=== PATIENT | female | born 1950 | race Hispanic/Latino ===

== ENCOUNTER 2018-05-01 13:48 | Emergency (ER) | payer MEDICARE | END 2018-05-01 14:23 | disposition home or self-care (01) | LOC: EDH 13:48 | DX: M79.604 Pain in right leg (principal); E78.5 Hyperlipidemia, unspecified; I10 Essential (primary) hypertension; Z72.0 Tobacco use; Z98.890 Other specified postprocedural states ==

== ENCOUNTER → 2018-08-02 | Outpatient (CLI) | payer MEDICARE | END | disposition home or self-care (01) | LOC: RAH 11:08 | PROVIDERS: ATTEND Orthopaedic Surgery | DX: G57.01 Lesion of sciatic nerve, right lower limb (principal); M54.5 Low back pain; Z91.81 History of falling; I10 Essential (primary) hypertension; E78.5 Hyperlipidemia, unspecified | CPT/HCPCS: 72148 ==

== ENCOUNTER → 2020-07-19 | Outpatient (CLI) | payer MEDICARE | END | disposition home or self-care (01) | LOC: OIH 11:24 | PROVIDERS: ATTEND Family Medicine | DX: M16.0 Bilateral primary osteoarthritis of hip (principal); M47.816 Spondylosis without myelopathy or radiculopathy, lumbar region; R26.9 Unspecified abnormalities of gait and mobility | CPT/HCPCS: 73521 ==

== ENCOUNTER → 2023-04-16 | Outpatient (CLI) | payer OTHER, MEDICARE ==
[2023-04-16 16:44] LABS: ALBUMIN 3.5 g/dL (3.5-5.0); POTASSIUM 3.8 mmol/L (3.5-5.1); TOTAL PROTEIN, SERUM 7.3 g/dL (6.0-8.3)
== END | disposition home or self-care (01) ==
LOC: LAB 15:23
PROVIDERS: ATTEND Student in an Organized Health Care Education/Training Program
DX: I49.3 Ventricular premature depolarization (principal)
CPT/HCPCS: 36415; 80053

== ENCOUNTER → 2023-04-20 | Outpatient (CLI) | payer OTHER, MEDICARE ==
[~2023-04-20] MED LIST: IOHEXOL 350 MG/ML 100ML INFUS..BTL IV ONE
== END | disposition home or self-care (01) ==
LOC: RAH 08:01
PROVIDERS: ATTEND Student in an Organized Health Care Education/Training Program
DX: R07.9 Chest pain, unspecified (principal)
CPT/HCPCS: 75574; Q9967

== ENCOUNTER → 2024-04-06 | Outpatient (CLI) | payer OTHER, MEDICARE ==
[~2024-04-06] MED LIST changes: +ATOR40TA69 PO; +ERGO500093 PO; +IBUP-2070 PO; -IOHEXOL 350 MG/ML 100ML INFUS..BTL IV ONE; +LIFI1DRO; +OLME40TA18 PO; +TRAM50TA4 PO
[2024-04-06 09:36] LABS: BASOPHILS # (AUTO) 0.08 K/uL (0.00-0.20); BASOPHILS % (AUTO) 1.4 % (0.0-5.0); EOSINOPHILS # (AUTO) 0.44 K/uL (0.00-0.70); EOSINOPHILS % (AUTO) 7.7 % (0.0-8.0); HEMATOCRIT 44.2 % (36-48); IMMATURE GRANULOCYTE ABSOLUTE 0.01 K/uL (0-1); LYMPHOCYTES # (AUTO) 1.5 K/uL (1.0-4.8); LYMPHOCYTES % (AUTO) 26.7 % (21.0-51.0); MEAN CORPUSCULAR HEMOGLOBIN 29.8 pg (27.0-33.0); MEAN CORPUSCULAR HGB CONC 33.3 g/dL (32.0-36.0); MEAN CORPUSCULAR VOLUME 89.5 fL (79-99); MONOCYTES # (AUTO) 0.6 K/uL (0.1-1.0); MONOCYTES % (AUTO) 9.9 % (3.0-13.0); NEUTROPHILS # (AUTO) 3.1 K/uL (1.8-7.7); NEUTROPHILS % (AUTO) 54.1 % (40.0-77.0); PLATELET COUNT (AUTO) 182 K/uL (130-400); RED BLOOD CELL COUNT(AUTO) 4.94 MIL/uL (4.00-5.50); WHITE BLOOD COUNT (AUTO) 5.7 K/uL (4.8-10.8)
[2024-04-06 09:48] LABS: INR <= 0.93 (0.85-1.15); PROTHROMBIN TIME 10.2 SEC (9.6-11.6)
[2024-04-06 09:49] LABS: PARTIAL THROMBOPLASTIN TIME 25.1 SEC (26.3-35.5)
== END | disposition home or self-care (01) ==
LOC: LAB 09:14
PROVIDERS: ATTEND Internal Medicine Gastroenterology
DX: R93.3 Abnormal findings on diagnostic imaging of other parts of digestive tract (principal); K57.30 Diverticulosis of large intestine without perforation or abscess without bleeding; E78.5 Hyperlipidemia, unspecified; Z86.010 Personal history of colon polyps
CPT/HCPCS: 36415; 85025; 85610; 85730

== ENCOUNTER 2024-04-07 07:21 | Day surgery (SDC) | payer OTHER, MEDICARE ==
[~2024-04-07] VITALS: Ht 144.8 cm; Wt 77.1 kg
[2024-04-07] VITALS (11 sets, daily range): BP systolic 105–145; BP diastolic 53–64; PULSE 48–68; RESP 14–17
[2024-04-07] MEDS: 0.9%NACL 1000ML 1,000 ML IV ONE (09:08)
[2024-04-07] MEDS ORDERED: PROPOFOL 10 MG/ML 20ML VIAL IV ONE (09:14)
[2024-04-07] MEDS ORDERED: CEFAZOLIN SODIUM 1 GM VIAL ONE (09:19)
[2024-04-07 10:21] LABS: AMYLASE,BODY FLUID 56 U/L
[2024-04-07 10:45] LABS: LIPASE,BODY FLUID 18 U/L
== END 2024-04-07 10:30 | disposition home or self-care (01) ==
LOC: ENDO 07:21 → DAH 07:21 → ENDO 10:30
PROVIDERS: ATTEND Internal Medicine Gastroenterology
DX: R93.3 Abnormal findings on diagnostic imaging of other parts of digestive tract (principal); K86.2 Cyst of pancreas; I10 Essential (primary) hypertension; F17.200 Nicotine dependence, unspecified, uncomplicated; K57.30 Diverticulosis of large intestine without perforation or abscess without bleeding; E78.00 Pure hypercholesterolemia, unspecified; Z90.710 Acquired absence of both cervix and uterus; Z98.891 History of uterine scar from previous surgery; Z79.899 Other long term (current) drug therapy
CPT/HCPCS: 43242; 82150; 83690; 36415; 88305; 88112; 82378; J0690; J7030 ×2; J2704; A4620; A4215 ×3; A4223; A4657; A4222; A4221; A4663; A4606; J3490